=== PATIENT | female | born 1985 | race Caucasian/White ===

== ENCOUNTER 2016-10-07 02:50 | Inpatient (IN) | payer OTHER ==
[~2016-10-07] VITALS: Ht 162.6 cm; Wt 116.6 kg
[~2016-10-07 02:50] MED LIST: BUSP5TAB3 PO; CALC625T83 PO; CHOL500051 PO; DEXT350P5 PO; FOLI0.4T2 PO; LAMO25TA PO; PREN1TAB87 PO
[2016-10-07] MEDS ORDERED: Ondansetron 2 mg/mL 2 mL Inj IVPUSH PRN ×2 (03:35→03:40)
[2016-10-07] MEDS ORDERED: fentaNYL 2 mCg/mL-Bupiv 0.125% 100 ML EPIDURAL SCH (03:35)
[2016-10-07] MEDS ORDERED: Lactated Ringer's 500 ML IV ONE (03:35)
[2016-10-07] MEDS ORDERED: Atropine 1 mg/10 mL (Code) Syringe IVPUSH PRN (03:35)
[2016-10-07] MEDS ORDERED: EPHEDrine Sulfate 50 mg/mL Inj IVPUSH PRN (03:35)
[2016-10-07] MEDS ORDERED: Lactated Ringer's 1,000 ML IV PRN (03:36)
[2016-10-07] MEDS ORDERED: Methylergonovine 0.2 mg/mL Inj IM PRN ×2 (03:40→04:25)
[2016-10-07] MEDS ORDERED: Sodium Chloride LOK Flush 10 mL Syringe IVFLUSH PRN (03:40)
[2016-10-07] MEDS ORDERED: Carboprost 250 mCg/mL Inj IM PRN ×2 (03:40→04:25)
[2016-10-07] MEDS ORDERED: Oxytocin 10 Unit/mL Inj IM PRN ×2 (03:40→04:25)
[2016-10-07] MEDS ORDERED: Oxytocin 30 Units/500 mL LR 30 UNITS in IV Premix 1 EACH IV PRN ×2 (03:40→04:25)
[2016-10-07] MEDS ORDERED: Hemorrhage Kit, Post Partum XX ONE ×2 (03:40→04:25)
[2016-10-07 03:45] LABS: Mean Corpuscular Hemoglobin 26.3 pg (27.0-35.0)
[2016-10-07] MEDS ORDERED: Oxytocin 30 Units/500 mL LR Premix IV ONE (03:51)
[2016-10-07] MEDS ORDERED: LANOlin HPA 7 Gm Ointment TOPICAL PRN (04:25)
[2016-10-07] MEDS ORDERED: Benzocaine (Dermoplast) 20% 60 Gm Spray TOPICAL PRN (04:25)
[2016-10-07] MEDS: Lactated Ringer's 1,000 ML IV SCH ×4 (04:25→12:25)
[2016-10-07] MEDS ORDERED: Witch Hazel-Glycerin Pads TOPICAL PRN (04:25)
[2016-10-07] MEDS ORDERED: oxyCODONE-Acetamin 5-325 mg Tablet PO PRN (04:25)
[2016-10-07] MEDS ORDERED: LAMO25TA PO (04:46)
--- NOTE | 2016-10-07 05:48 | HP ---
[address] [address] HISTORY AND PHYSICAL PATIENT: JOE ROBB : 1985 MR#: [id number] ADMIT: 10/07/2016 JOB ID: [id number] ADMISSION DIAGNOSIS: Precipitous labor. HISTORY OF PRESENT ILLNESS: The patient is 31-year-old, 2, para 1-0-0-1, at 40 weeks and 2 days gestational age by LMP, confirmed by 7-week ultrasound, who had her complicated with the followin- History of gastric bypass. 2- severe anemia,follow up with [facility] [employer] [facility] for IV iron infusion, 3- bipolar disorder, on lamotrigine and buspirone, 4- morbid obesity, -5- GBS bacteriuria, 6- abnormal Pap smear( ASCUS with positive high-risk HPV). Plan is for colpo six weeks . She presented in active labor, progressed to fully dilated, and had a precipitous labor within 1 hour from triage presentation. PAST OBSTETRICAL HISTORY: In 2013, a 40 weeks ended with spontaneous vaginal delivery with no complications, and the current . PAST GYNECOLOGIC HISTORY: Ascus Pap with positive high-risk HPV. No other STDs. PAST MEDICAL HISTORY: Bipolar disorder, severe anemia, follow up with Dr. Yusuf Granado, [employer] [facility] [employer]. Recently received IV iron infusion and she is on B complex. She was receiving calcium, iron, vitamin B12, vitamin D, folic acid supplementation during her for her history of gastric bypass. PAST SURGICAL HISTORY: Gastric bypass. ALLERGIES: AMOXICILLIN, with anaphylaxis. SOCIAL HISTORY: Denied any alcohol consumption. Denied any drugs of abuse. Denied any cigarette smoking. MEDICATIONS: 1. Folic acid 800 mcg. 2. Calcium 500 mg. 3. Super B complex once daily. 4. Lamotrigine 50 mg twice daily. 5. Buspirone 5 mg daily. 6. vitamins once daily. 7. Vitamin D 5000 mg once daily. LABORATORIES: B positive, antibody negative, rubella immune, serology nonreactive, hepatitis B surface antigen negative. HIV nonreactive. Quad screen negative. GC and chlamydia cultures negative. H and H on admission is 11.4 and 34.7. A 2-hour glucose test was within normal limits for GGM screening. Normal growth ultrasounds for the entire . Received last IV iron infusion with Dr. Granado while she was 34 weeks in August 2016. PHYSICAL EXAMINATION: The patient is alert, oriented x3. Vital signs are 119/79 for blood pressure. Respirations are 18, pulse is 81, temperature 35.9 degrees centigrade. PRECIPITOUS DELIVERY REPORT: Right after the baby was born, placenta was still undelivered. I delivered the placenta. Upon inspection, it was noted to be intact with three-vessel cord centrally inserted. Firm uterine fundus with no blood clots retrieved after delivery of the placenta. Inspection of the perineum revealed no lacerations. Some small abrasions that was hemostatic at the left labia and 6 o'clock of the perineum. No repair indicated. ESTIMATED BLOOD LOSS: 200 cc. FINDINGS: Single viable female with Apgars 8/9, weight still pending. Sponge and instrument counts were correct x2. Mom and baby recovering in a stable condition in Labor and Delivery Room. Both tolerated the delivery well. ASSESSMENT AND PLAN: The patient is a 31-year-old, 2, para 2, day #0, status post precipitous labor. Mom and baby in stable condition. 1-Start care. 2- continue with the patient's lamotrigine and buspirone for bipolar disorder. Discussed with patient. MARIELENA
[2016-10-07] MEDS ORDERED: BusPIRone 15 mg Dividose Tablet PO SCH (08:30)
[2016-10-07] MEDS ORDERED: lamoTRIgine 25 mg Tablet PO SCH (08:30)
[2016-10-08 07:40] LABS: Mean Corpuscular Hemoglobin 25.9 pg (27.0-35.0); Mean Corpuscular Volume 82.8 fL (81-100)
[2016-10-08] MEDS ORDERED: lamoTRIgine 25 mg Tablet PO SCH (08:30)
--- NOTE | 2016-10-08 09:56 | PCM.DIOB ---
Obstetrical Disch Instruction Date of Service: Oct 08, 2016 Dates of Hospitalization Date of Hospital Admission Oct 07, 2016 at 03:03 Providers Admitting Physician: Esperanza Soni MD Primary Care Physician: Veronique Joseph Attending Physician: Esperanza Soni MD Discharge Diagnosis Discharge Diagnosis PPD#1 S/P , anemia Problems: Diet Discharge Diet: No restrictions Activity Discharge Activity-General: Pelvic Rest for 6 weeks, No lifting >10 pounds for 4-6 weeks Dressing and Incisional Care Hygiene: May shower Follow Up Plan Follow-up Provider (F9): Esperanza Soni MD Follow-up appointment: Weeks (2) Call your provider for: Fever or Chills, Shortness of breath, Heavy vaginal bleeding, Other (excessive pain not controlled with pain medications.) Esperanza Soni MD Oct 08, 2016 09:55
[2016-10-08] MEDS ORDERED: DOCU-41 PO (09:57)
[2016-10-08] MEDS ORDERED: IBUP-1827 PO (09:57)
[2016-10-08 13:50] VITALS: BP 124/63; PULSE 69; RESP 20
--- NOTE | 2016-10-08 19:19 | DIS ---
[address] [address] DISCHARGE SUMMARY PATIENT: JOE ROBB : 1985 MR#: [id number] ADMIT: 10/07/2016 JOB ID: [id number] DIS: 10/08/2016 DISCHARGE DIAGNOSES: 1. day number one status post spontaneous vaginal delivery. 2. Anemia. Cannot tolerate p.o. iron. 3. Bipolar disorder. 4. History of gastric bypass. For further details, please refer to the fully dictated notes. On the day of discharge, the patient had no complaints. Voiding, ambulating, tolerating p.o. intake. with no difficulties. OBJECTIVE: Vital signs are 130/60 for blood pressure. Respirations are 16. Pulse is 57, temperature is 36.5 degrees centigrade. Heart is regular rate and rhythm. Positive S1, S2. Lungs clear to auscultation bilaterally. Abdomen firm. Uterine fundus palpated at the umbilicus. Nontender. Nondistended abdomen. Positive bowel sounds. Perineum no active bleeding. Lower extremities: No calf tenderness appreciated bilaterally. H and H on day number one is 9.5 and 30.4, platelets of 208, and white blood count 7.6. DISCHARGE PLAN: Patient will be discharged home in stable condition. Follow up with Dr. Soni in the office in two weeks. Instructed to have nothing in the vagina for six weeks. No heavy lifting more than baby's weight. Instructed to call for fever, chills, severe abdominal pain not controlled by pain medication, heavy vaginal bleeding, or any other concerning symptoms. The patient also will follow up with for her IV iron infusion as needed. DISCHARGE MEDICATIONS: 1. Ibuprofen 600 mg every 6 hours. 2. Colace 100 mg twice daily. 3. continue with current dose of lamotrigine and buspirone. 4. continue vitamins daily. The patient understood the discharge instructions. She will comply with her discharge plan. MARIELENA
[2016-10-30] MEDS ORDERED: METO5TAB78 PO (14:10)
== END 2016-10-08 14:22 | disposition home or self-care (01) | DRG 775 ==
LOC: FBCO 02:50 → FBC 03:03
PROVIDERS: ADMIT Obstetrics & Gynecology; ATTEND Obstetrics & Gynecology
PROC: 10E0XZZ Delivery of Products of Conception, External Approach (ICD-10-PCS; principal; 2016-10-07)
DX: O48.0 Post-term pregnancy (principal); Z68.41 Body mass index [BMI] 40.0-44.9, adult; Z3A.40 40 weeks gestation of pregnancy; Z37.0 Single live birth; O62.3 Precipitate labor; O99.344 Other mental disorders complicating childbirth; F31.9 Bipolar disorder, unspecified; O99.02 Anemia complicating childbirth; D64.9 Anemia, unspecified; E66.01 Morbid (severe) obesity due to excess calories; O99.214 Obesity complicating childbirth; O99.844 Bariatric surgery status complicating childbirth